=== PATIENT | female | born 1970 | race Caucasian/White ===

== ENCOUNTER 2018-09-07 11:04 | Day surgery (SDC) | payer BC ==
[2018-09-06 11:27] VITALS: BMI 23.0
[2018-09-07] MEDS ORDERED: BUPIVACAINE HCL 0.25% 125 MG/50 ML VIAL ONE (13:22)
[2018-09-07] MEDS ORDERED: MIDAZOLAM HCL 2 MG/2 ML SINGLE DOSE VIAL ONE (13:27)
[2018-09-07] MEDS ORDERED: KETOROLAC TROMETHAMINE 30 MG/1 ML VIAL ONE (13:37)
[2018-09-07] MEDS ORDERED: DEXAMETHASONE SOD PHOSPHATE 4 MG/1 ML VIAL ONE (13:37)
[2018-09-07] MEDS ORDERED: ceFAZolin SODIUM 1 GM VIAL ONE (13:37)
[2018-09-07] MEDS ORDERED: LIDOCAINE HCL/PF 2% SDV 5ML VIAL ONE (13:37)
[2018-09-07] MEDS ORDERED: ONDANSETRON 4 MG/2 ML VIAL ONE (13:37)
[2018-09-07 14:43] VITALS: TEMP 97.5
[2018-09-07 15:22] VITALS: BP 124/71; PULSE 76
--- NOTE | 2018-09-12 18:41 | OP ---
DATE OF OPERATION: 09/07/2018 PREOPERATIVE DIAGNOSIS: Left small finger proximal phalanx displaced fracture. POSTOPERATIVE DIAGNOSIS: Left small finger proximal phalanx displaced fracture. OPERATIVE PROCEDURE: Closed reduction and percutaneous pinning of left small finger proximal phalanx fracture. SURGEON: Refugio Tang MD STAFF NUCLEAR MEDICINE TECHNOLOGIST: FABI Thibodeaux ANESTHESIA: General. COMPLICATIONS: None. ESTIMATED BLOOD LOSS: Minimal. INDICATION FOR PROCEDURE: The patient is a 47-year-old female with the above finding, indicated for operative treatment. The risks, benefits, and alternatives were discussed with the patient at length. Proper informed consent was obtained. PROCEDURE: After proper identification of the patient and correct operative site, patient was brought to the operating room, placed supine on the table. Prominences were well padded. General anesthesia and local anesthetics were used. Left upper extremity was prepped and draped in usual sterile fashion. Well-padded tourniquet was placed as well as a sterile prep. Closed reduction was performed, and I was able to achieve a satisfactory reduction with the closed technique using live fluoroscopy. At this point, while I maintained reduction, Damion Ontiveros, the senior care assistant, was able to pass K-wires in a [id number] direction across the fracture site. Two K-wires were placed total. This provided secure, stable fixation, confirmed radiographically in multiple planes and with motion-ensured stability. Pins were cut short and bent outside of the skin. Sterile dressings and a splint were placed. Patient was reversed from anesthesia and brought to Recovery in stable condition. She tolerated the procedure well. REFUGIO TANG M.D. [id number]
== END 2018-09-07 15:30 | disposition home or self-care (01) ==
LOC: FASU 11:04
PROVIDERS: ATTEND Orthopaedic Surgery Hand Surgery
PROC: 0PSV34Z Reposition Left Finger Phalanx with Internal Fixation Device, Percutaneous Approach (ICD-10-PCS; principal; 2018-09-07 13:50)
DX: S62.617A Displaced fracture of proximal phalanx of left little finger, initial encounter for closed fracture (principal); X58.XXXA Exposure to other specified factors, initial encounter; Y93.89 Activity, other specified; Y92.89 Other specified places as the place of occurrence of the external cause
CPT/HCPCS: 73140-TC-LT-FY; 84703